=== PATIENT | male | born 1980 | race African-American/Black ===

== ENCOUNTER 2016-12-17 07:02 | Emergency (ER) | payer SELFPAY ==
[~2016-12-17] VITALS: Ht 172.7 cm; Wt 76.4 kg
[2016-12-17 07:06] VITALS: TEMP 97.8
[2016-12-17 08:51] VITALS: BP 149/105; PULSE 73
== END 2016-12-17 08:51 | disposition home or self-care (01) ==
LOC: COL.ER 07:02
DX: S60.212A Contusion of left wrist, initial encounter (principal); F12.10 Cannabis abuse, uncomplicated; Z87.891 Personal history of nicotine dependence; W22.8XXA Striking against or struck by other objects, initial encounter; Y92.009 Unspecified place in unspecified non-institutional (private) residence as the place of occurrence of the external cause

== ENCOUNTER 2017-06-19 13:41 | Emergency (ER) | payer SELFPAY ==
[~2017-06-19] VITALS: Ht 172.7 cm; Wt 79.1 kg
[2017-06-19 13:48] VITALS: BP 161/95; PULSE 100; TEMP 98.8
[2017-06-19] MEDS ORDERED: DOXYCYCLINE 10100 MG PO (16:26)
== END 2017-06-19 16:45 | disposition home or self-care (01) ==
LOC: COL.ER 13:41
DX: J20.9 Acute bronchitis, unspecified (principal); F12.90 Cannabis use, unspecified, uncomplicated; F17.290 Nicotine dependence, other tobacco product, uncomplicated